=== PATIENT | male | born 1970 | race Caucasian/White ===

== ENCOUNTER 2017-04-30 16:34 | Emergency (ER) | payer OTHER ==
[~2017-04-30] VITALS: Ht 182.9 cm; Wt 79.4 kg
--- NOTE | 2017-04-30 16:45 | NUR ---
PATIENT PRESENTS TO ER C/O L RIB CAGE PAIN S/P GLF THIS AM, -KO. A/OX 4. BREATHING EVEN AND UNLABORED. NO SOB. VITALS STABLE. SAFETY AND COMFORT MEASURES IN PLACE. AWAITING MD ORDERS.
--- NOTE | 2017-04-30 17:40 | NUR ---
HUMAN RESOURCES ANALYST AT BEDSIDE.
[2017-04-30] MEDS ORDERED: HYDROCODONE/APAP 5/325MG 1 EACH TABLET ONE (17:46)
--- NOTE | 2017-04-30 17:51 | NUR ---
PATIENT REFUSED PAIN MED, STATING HE DOESNT NEED IT AT THIS TIME.
[2017-04-30] MEDS ORDERED: HYDROCODONE/APAP 5/325MG 1 EACH TABLET PO ONE (18:00)
--- NOTE | 2017-04-30 18:08 | NUR ---
Patient discharged to home in stable condition. Written and verbal after care instructions given. Patient verbalizes understanding of instruction.
[2017-04-30 18:09] VITALS: BP 125/84
== END 2017-04-30 18:09 | disposition home or self-care (01) ==
LOC: ER 16:38
DX: S22.32XA Fracture of one rib, left side, initial encounter for closed fracture (principal); W19.XXXA Unspecified fall, initial encounter; Y93.89 Activity, other specified; Y92.89 Other specified places as the place of occurrence of the external cause; Y99.8 Other external cause status
CPT/HCPCS: 71100; 99284; A4606; Z7610

== ENCOUNTER 2017-07-19 13:51 | Emergency (ER) | payer OTHER ==
[~2017-07-19] VITALS: Ht 182.9 cm; Wt 81.6 kg
[2017-07-19 14:03] VITALS: BP 148/90
--- NOTE | 2017-07-19 14:10 | NUR ---
CAME FROM DENTAL OFFICE, ADVISED TO GO HERE TO GET STEROID FOR FACIAL SWELLING. 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 NAD NOTED, VSS, RESP EVEN AND UNLABORED. WAITING FOR MD GALEANO.
[2017-07-19] MEDS ORDERED: methylPREDNISolone SOD SUCC 125 MG/2ML VIAL ONE (14:24)
[2017-07-19] MEDS ORDERED: methylPREDNISolone SOD SUCC 125 MG/2ML VIAL IV ONE (14:30)
[2017-07-23] MEDS ORDERED: IBUP-1482 PO (13:29)
== END 2017-07-19 15:38 | disposition home or self-care (01) ==
LOC: ER 13:56
DX: K04.7 Periapical abscess without sinus (principal); L03.211 Cellulitis of face; F32.9 Major depressive disorder, single episode, unspecified; F41.9 Anxiety disorder, unspecified
CPT/HCPCS: 96374; 99284; A4606; J2930; Z7610

== ENCOUNTER 2017-07-21 12:20 | Emergency (ER) | payer OTHER ==
[~2017-07-21] VITALS: Ht 182.9 cm; Wt 81.6 kg
[2017-07-21 13:03] VITALS: BP 115/70
[2017-07-23] MEDS ORDERED: IBUP-1482 PO (13:29)
== END 2017-07-21 15:26 | disposition home or self-care (01) ==
LOC: ER 12:22
DX: M27.2 Inflammatory conditions of jaws (principal); F41.9 Anxiety disorder, unspecified; F32.9 Major depressive disorder, single episode, unspecified
CPT/HCPCS: 99281; A4606; Z7610; Z7502

== ENCOUNTER 2017-07-23 06:29 | Inpatient (IN) | payer OTHER ==
[~2017-07-23] VITALS: Ht 182.9 cm; Wt 77.1 kg
--- NOTE | 2017-07-23 07:25 | NUR ---
AAOX3, C/O LEFT FACIAL SWELLING X 1 MONTH, BEEN TAKING ANTIBIOTIC TO NO RELIEF. RESP IS EVEN AND UNLABORED WITH NAD NOTED. SKIN IS WARM AND DRY. DR IBARRA AT BS FOR EVAL.
[2017-07-23] MEDS ORDERED: IV NS 0.9% 1,000 ML BAG IV ONE (07:30)
[2017-07-23 07:58] LABS: BASOPHILS % (AUTO) 0.4 % (0.0-2.0); EOSINOPHILS # (AUTO) 0.3 /CMM (0.0-0.7); EOSINOPHILS % (AUTO) 3.2 % (0.0-6.0); HEMATOCRIT 45 % (39-51); HEMOGLOBIN 15.4 g/dL (13.5-17.5); LYMPHOCYTES # (AUTO) 1.5 /CMM (0.8-4.8); LYMPHOCYTES % (AUTO) 15.8 % (20.0-44.0); MEAN CORPUSCULAR HEMOGLOBIN 31 PG (26.0-33.0); MEAN CORPUSCULAR HGB CONC 34 g/dl (31.0-36.0); MEAN CORPUSCULAR VOLUME 92 fL (80-96); MONOCYTES # (AUTO) 0.8 /CMM (0.1-1.30); NEUTROPHILS # (AUTO) 6.6 /CMM (1.8-8.9); NEUTROPHILS % (AUTO) 71.6 % (43.0-81.0); PLATELET COUNT (AUTO) 274 /CMM (150-450); RDW COEFFICIENT OF VARIATION 13.3 (11.5-15.0); RED BLOOD CELL COUNT(AUTO) 4.92 MIL/uL (4.5-6.0); WHITE BLOOD COUNT (AUTO) 9.2 K/uL (4.3-11.0)
[2017-07-23] MEDS ORDERED: HYDROCODONE/APAP 10/325MG 1 EA TABLET PO ONE (08:00)
[2017-07-23] MEDS ORDERED: HYDROCODONE/APAP 10/325MG 1 EA TABLET ONE (08:00)
[2017-07-23 08:09] LABS: CALCIUM, SERUM 8.9 mg/dL (8.5-10.1); CREATININE 1.2 mg/dL (0.6-1.3); POTASSIUM 3.8 mmol/L (3.5-5.1)
[2017-07-23 08:10] LABS: INR 0.94 (0.87-1.13); PROTHROMBIN TIME 9.8 SECS (9.5-12.7)
[2017-07-23] MEDS ORDERED: IOHEXOL-300 100 ML VIAL IV ONE (08:21)
[2017-07-23] MEDS ORDERED: IV NS 0.9% 500 ML IV ONE (08:21)
--- NOTE | 2017-07-23 08:30 | NUR ---
Patient is resting comfortably in bed with eyes closed. Easily aroused. VSS
--- NOTE | 2017-07-23 11:25 | NUR ---
Patient is resting comfortably in bed with eyes closed. Easily aroused. VSS
--- NOTE | 2017-07-23 12:25 | NUR ---
PAGED DR. RODRIGUEZ FOR ADMISSION
[2017-07-23] MEDS ORDERED: PIPERACILLIN /TAZOBACTAM 3.375 G in IV D5W 50 ML IV ONE (12:30)
--- NOTE | 2017-07-23 13:12 | NUR ---
REPORT GIVEN TO CANDACE MARCUM FOR MAYTE MS 313
[2017-07-23] MEDS ORDERED: CEPH-569 PO (13:29)
[2017-07-23] MEDS ORDERED: SULF1TAB48 PO (13:29)
[2017-07-23] MEDS ORDERED: IBUP-1957 PO (13:29)
[2017-07-23] MEDS ORDERED: HYDR-552 PO (13:29)
[2017-07-23] MEDS ORDERED: FLUO-120 PO (13:29)
[2017-07-23] MEDS ORDERED: CLON0.5T4 PO (13:29)
[2017-07-23 13:30] VITALS: BP 110/68
[2017-07-23] MEDS ORDERED: ACETAMINOPHEN 325 MG TABLET PO PRN (13:30)
[2017-07-23] MEDS ORDERED: MAGNESIUM HYDROXIDE 30 ML UDC PO PRN (13:30)
[2017-07-23] MEDS ORDERED: Z GUARD REMEDY 2 OZ OINT TP PRN (13:30)
[2017-07-23] MEDS ORDERED: ZOLPIDEM TARTRATE 5 MG TABLET PO PRN (13:30)
[2017-07-23] MEDS ORDERED: ONDANSETRON HCL/PF 4 MG/2 ML VIAL IVP PRN (13:30)
[2017-07-23] MEDS ORDERED: MAG HYDROX/AL HYDROX/SIMETH 30 ML UDC PO PRN (13:30)
--- NOTE | 2017-07-23 13:30 | NUR ---
MS/QUALITY CONTROL ASSESSOR PATIENT RECEIVED FROM ER IN STABLE CONDITION, TRANSFER VIA WHEEL CHAIR. A/O X 4. NO SIGNS OF ACUTE DISTRESS. NO COMPLAIN OF PAIN OR DISCOMFORT. REPORT GIVEN BY ERIKA NURSE FROM ER. RIGHT AC IV SITE GZ 18 INTACT AND FLUSHES WELL. SKIN CONDITION INTACT. NOTED WITH LEFT SIDE OF FACE SWELLING WITH MILD REDNESS AROUND NASAL AND CHEEK SITE. CONTINENT OF BOWEL AND BLADDER. AMBULATORY. ALL NEEDS ATTENDED TO. CALL LIGHT WITHIN REACH. WILL CONTINUE TO MONITOR TO ENSURE SAFETY.
[2017-07-23] MEDS: MORPHINE SULFATE INJ 2 MG/ML DISP.SYRIN IV PRN ×2 (15:06→19:37)
--- NOTE | 2017-07-23 15:30 | NUR ---
MS/RN SEEN BY DR AARON SEEN BY DR AARON AND MADE AWARE PATIENT COMPLAINING NASAL CONGESTION AND REQUESTING DECONGESTANT PER DR AARON ORDERED OCEAN NASAL SPRAY 1 SPRAY TO EACH NOSTRILS Q6 HRS PRN. ALSO PER DR AARON IF DR RODRIGUEZ SURGEON DOESNT SHOW UP TILL 10PM, THEN GO AHEAD AND ALLOW PATIENT TO HAVE DINNER AROUND 10PM AND NPO POST MIDNIGHT. WILL ENDORSE TO NEXT SHIFT NURSE.
[2017-07-23 16:00] VITALS: BP 115/65
[2017-07-23] MEDS ORDERED: SALINE NASAL SPRAY 0.65% 1 BOTTLE BOTTLE NS PRN (16:00)
--- NOTE | 2017-07-23 17:17 | NUR ---
MS/RN SPOKE WITH DR RODRIGUEZ (ENT) RECEIVED CALL FROM DR RODRIGUEZ AND PER DR RODRIGUEZ, HE WILL PERFORM SURGERY TOMORROW AT 9AM, WILL BE ON FLOOR TOMORROW AROUND 8AM, WILL EXPLAIN THE PROCEDURE TO PATIENT AND WILL OBTAIN CONSENT IN AM. NEW ORDER NPO POST MIDNIGHT. PATIENT MADE AWARE.
[2017-07-23] MEDS: PIPERACILLIN /TAZOBACTAM 3.375 G in IV D5W 50 ML IV SCH ×2 (17:25→23:45)
--- NOTE | 2017-07-23 18:10 | NUR ---
MS/RN CLOSING NOTE PATIENT IN BED IN STABLE CONDITION. A/O X 4. NO SIGNS OF ACUTE DISTRESS. NO COMPLAIN OF PAIN OR DISCOMFORT. ALL NEEDS ATTENDED TO. CALL LIGHT WITHIN REACH. WILL ENDORSE TO NEXT SHIFT FOR CONTINUITY OF CARE.
--- NOTE | 2017-07-23 19:30 | NUR ---
MS/RN NOTES RECEIVED PT. LYING IN BED. AWAKE, ALERT AND ORIENTED X4. BREATHING EVEN AND UNLABORED ON ROOM AIR. NO SOB, RESPIRATORY DISTRESS OR COMPLAINTS OF PAIN NOTED AT THIS TIME. PT. WITH RIGHT AC 18 GAUGE IV SALINE LOCK PRESENT, PATENT AND INTACT. PER DAYSHIFT NURSE PT. WILL BE NPO POST MIDNIGHT PENDING SURGERY FOR ABSCESS DRAINAGE TOMORROW MORNING WITH DR. RODRIGUEZ. PT. IS AWARE AND VERBALIZED UNDERSTANDING. PT. WITH FAMILY MEMBER PRESENT AT BEDSIDE. BED LOCKED AND IN LOWEST POSITION, SIDE RAILS UP X2, CALL LIGHT WITHIN REACH, WILL CONTINUE TO MONITOR.
[2017-07-23 20:10] VITALS: BP 106/68
[2017-07-23] MEDS ORDERED: PIPERACILLIN /TAZOBACTAM 4.5 G in IV D5W 50 ML IV SCH (21:00)
[2017-07-24] MEDS: PIPERACILLIN /TAZOBACTAM 3.375 G in IV D5W 50 ML IV SCH ×3 (06:00→17:53)
[2017-07-24] MEDS: MORPHINE SULFATE INJ 2 MG/ML DISP.SYRIN IV PRN ×2 (06:07→10:30)
[2017-07-24 06:28] LABS: BASOPHILS % (AUTO) 0.4 % (0.0-2.0); EOSINOPHILS # (AUTO) 0.3 /CMM (0.0-0.7); EOSINOPHILS % (AUTO) 4.1 % (0.0-6.0); HEMATOCRIT 47 % (39-51); HEMOGLOBIN 15.3 g/dL (13.5-17.5); LYMPHOCYTES # (AUTO) 1.4 /CMM (0.8-4.8); LYMPHOCYTES % (AUTO) 18.6 % (20.0-44.0); MEAN CORPUSCULAR HEMOGLOBIN 31 PG (26.0-33.0); MEAN CORPUSCULAR HGB CONC 33 g/dl (31.0-36.0); MEAN CORPUSCULAR VOLUME 94 fL (80-96); MONOCYTES # (AUTO) 0.7 /CMM (0.1-1.30); MONOCYTES % (AUTO) 8.5 % (2.0-12.0); NEUTROPHILS # (AUTO) 5.3 /CMM (1.8-8.9); NEUTROPHILS % (AUTO) 68.4 % (43.0-81.0); PLATELET COUNT (AUTO) 278 /CMM (150-450); RDW COEFFICIENT OF VARIATION 13.4 (11.5-15.0); RED BLOOD CELL COUNT(AUTO) 4.97 MIL/uL (4.5-6.0); WHITE BLOOD COUNT (AUTO) 7.8 K/uL (4.3-11.0)
--- NOTE | 2017-07-24 06:42 | NUR ---
MS/RN NOTES PT. IS LYING IN BED RESTING. BREATHING EVEN AND UNLABORED ON ROOM AIR. NO SOB, RESPIRATORY DISTRESS OR COMPLAINTS OF PAIN NOTED AT THIS TIME. PT. WITH RIGHT AC 18 GAUGE IV SALINE LOCK PRESENT, PATENT AND INTACT. PT. REMAINS NPO SINCE MIDNIGHT PENDING SURGERY FOR ABSCESS DRAINAGE THIS TOMORROW MORNING WITH DR. RODRIGUEZ. PER DAYSHIFT NURSE DR. RODRIGUEZ WILL COME AND TALK TO THE PT. THIS MORNING BEFORE GETTING CONSENT. ALL PT. NEEDS MET. ALL DUE MEDICATIONS GIVEN. BED LOCKED AND IN LOWEST POSITION, SIDE RAILS UP X2, CALL LIGHT WITHIN REACH, WILL ENDORSE TO DAYSHIFT NURSE FOR CONTINUITY OF CARE.
[2017-07-24 06:44] LABS: CALCIUM, SERUM 8.8 mg/dL (8.5-10.1); CREATININE 1.1 mg/dL (0.6-1.3); MAGNESIUM 2.3 mg/dL (1.8-2.4); PHOSPHORUS 3.8 mg/dL (2.5-4.9); POTASSIUM 4.7 mmol/L (3.5-5.1)
--- NOTE | 2017-07-24 07:20 | NUR ---
RN NOTES PT IS RESTING IN BED, NO SIGNS OF DISTRESS NOTED. PT ON RA, RESPIRATIONS ARE EVEN AND UNLABORED. IV ON RAC INTACT. SAFETY MEASURES ARE IN PLACE, CALL LIGHT IS IN REACH. WILL CONTINUE TO MONITOR.
[2017-07-24 08:00] VITALS: BP 107/69
[2017-07-24] MEDS ORDERED: LIDOCAINE 2%-EPI 1:200,000 20 ML VIAL IJ ONE (08:30)
[2017-07-24] MEDS ORDERED: BACITRACIN 50000 UNITS/VIAL ONE (08:30)
[2017-07-24] MEDS ORDERED: MIDAZOLAM HCL 2 MG/2ML VIAL ONE (08:56)
[2017-07-24] MEDS ORDERED: FENTANYL PF 100MCG/2ML AMPUL ONE ×2 (08:56→09:51)
[2017-07-24] MEDS ORDERED: CHLORHEXIDINE GLUCONATE 15 ML UDC MM ONE (09:00)
[2017-07-24] MEDS ORDERED: LIDOCAINE 1%-EPI 1:100,000 20 ML VIAL TP ONE (09:00)
[2017-07-24] MEDS ORDERED: KETAMINE HCL (500MG/10ML) 50 MG/ML VIAL ONE (09:01)
[2017-07-24] MEDS: HYDROCODONE/APAP 5/325MG 1 EACH TABLET PO PRN (11:06)
[2017-07-24] MEDS ORDERED: MORPHINE SULFATE INJ 2 MG/ML DISP.SYRIN IV PRN ×2 (12:30→13:30)
[2017-07-24] MEDS ORDERED: KETOROLAC TROMETHAMINE INJ 30 MG/ML VIAL IM ONE (12:30)
[2017-07-24] MEDS: CHLORHEXIDINE GLUCONATE 15 ML UDC MM SCH ×2 (12:37→17:53)
[2017-07-24] MEDS: HYDROCODONE/APAP 10/325MG 1 EA TABLET PO SCH ×2 (12:38→17:53)
[2017-07-24 16:00] VITALS: BP 125/73
--- NOTE | 2017-07-24 18:55 | NUR ---
RN NOTES PT IS SITTING UP IN BED, NO SIGNS OF DISTRESS NOTED, PT DENIES ANY PAIN. PT ON RA, RESPIRATIONS ARE EVEN AND UNLABORED. IV ON RAC INTACT AND PATENT. ALL MEDS WERE GIVEN ORDERED AND PT NEEDS MET. SAFETY MEASURES ARE IN PLACE, CALL LIGHT IS IN REACH. WILL ENDORSE TO CARTOON ARTIST RN FOR CONTINUITY OF CARE.
--- NOTE | 2017-07-24 19:30 | NUR ---
RN NOTE; RECEIVED PT IN BED AWAKE AND ALERT, BREATHING EVENLY. NO SOB. NAD. SKIN WARM AND DRY. NO C/O PAIN OR DISCOMFORT AT THIS TIME. STILL W/ FACIAL SWELLING. W/ MINIMAL BLOOD LEAKAGE FROM THE SX SITE INSIDE THE MOUTH.. NEEDS ATTENDED. BED LOW LOCKED. CALL LIGHT WITHIN REACH. WILL CONT TO MONITOR .
[2017-07-24 20:00] VITALS: BP 119/70
[2017-07-25] MEDS: HYDROCODONE/APAP 10/325MG 1 EA TABLET PO SCH ×4 (00:02→12:14)
[2017-07-25] MEDS: PIPERACILLIN /TAZOBACTAM 3.375 G in IV D5W 50 ML IV SCH ×3 (00:05→12:05)
--- NOTE | 2017-07-25 06:18 | NUR ---
RN NOTE; PT IN BED SLEEPING, AROUSES EASILY. BREATHING EVENLY. NO SOB. NAD. W/ L FACIAL SWELLING. NO BLEEDING FROM THE INCISION SITE. PAIN UNDER CONTROL W/ ROUND THE CLOCK NORCO. NEEDS ATTENDED. ASSISTED W/ ADLs. CALL LIGHT WITHIN REACH. WILL CONT TO MONITOR AND WILL ENDORSE TO AM SHIFT FOR MAYTE.
[2017-07-25 07:14] LABS: BASOPHILS % (AUTO) 0.4 % (0.0-2.0); EOSINOPHILS # (AUTO) 0.4 /CMM (0.0-0.7); EOSINOPHILS % (AUTO) 5.3 % (0.0-6.0); HEMATOCRIT 43 % (39-51); HEMOGLOBIN 14.4 g/dL (13.5-17.5); LYMPHOCYTES # (AUTO) 1.5 /CMM (0.8-4.8); LYMPHOCYTES % (AUTO) 17.9 % (20.0-44.0); MEAN CORPUSCULAR HEMOGLOBIN 31 PG (26.0-33.0); MEAN CORPUSCULAR HGB CONC 34 g/dl (31.0-36.0); MEAN CORPUSCULAR VOLUME 93 fL (80-96); MONOCYTES # (AUTO) 0.8 /CMM (0.1-1.30); MONOCYTES % (AUTO) 9.7 % (2.0-12.0); NEUTROPHILS # (AUTO) 5.5 /CMM (1.8-8.9); NEUTROPHILS % (AUTO) 66.7 % (43.0-81.0); PLATELET COUNT (AUTO) 248 /CMM (150-450); RDW COEFFICIENT OF VARIATION 13.7 (11.5-15.0); WHITE BLOOD COUNT (AUTO) 8.3 K/uL (4.3-11.0)
[2017-07-25 07:35] LABS: CALCIUM, SERUM 8.9 mg/dL (8.5-10.1); MAGNESIUM 2.2 mg/dL (1.8-2.4); POTASSIUM 4.1 mmol/L (3.5-5.1)
--- NOTE | 2017-07-25 07:37 | NUR ---
RN OPENING NOTES. RECEIVED PT A&0X3, AWAKE AND RESTING IN BED. PT TOLERATING ROOM AIR WITH NO SOB. PT REPORTING ACCEPTABLE 3/10 PAIN. PT WITH IVC AT R AC G#18 INTACT AND OPERATIONAL. IV'S REVIEWED AND CORRECT. BED IN LOWEST LOCKED POSITION WITH HANDRAILSX2 AND CALL DICKENS WITHIN REACH. PT BRIEFED ON TODAY'S POC. PT IS WITHOUT CONCERN OR COMPLAINT AT THIS TIME.
[2017-07-25 08:00] VITALS: BP 108/65
[2017-07-25] MEDS: CHLORHEXIDINE GLUCONATE 15 ML UDC MM SCH (10:53)
[2017-07-25] MEDS: HYDROCODONE/APAP 5/325MG 1 EACH TABLET PO PRN (12:19)
--- NOTE | 2017-07-25 12:21 | NUR ---
RN NOTES. PT REFUSING NORCO 10, REQUESTING NORCO 5. ADMINISTERED WITH GOOD EFFECT.
--- NOTE | 2017-07-25 14:35 | NUR ---
RN CLOSING NOTES. PT A&0X3 AND TOLERATING ROOM AIR WITH NO SOB. PT REPORTING ADEQUATE PAIN MANAGEMENT AT THIS TIME WITH PAIN GENERALIZED FACIAL PAIN 2-3/10. PT WITHOUT IVC AND NAD AT SITE. ALL PT BELONGINGS ACCOUNTED FOR AND DOCUMENT SIGNED. PT BRIEFED ON SOH D/C PACKET AND GIVEN SCRIPTS AND APPROPRIATE NUMBERS FOR FOLLOW. PT VERBALIZING UNDERSTANDING AND INTENT TO COMPLY. PT WITHOUT CONCERN OF COMPLAINT AT THIS TIME. PT AMBULATORY EXIT.
== END 2017-07-25 15:30 | disposition home or self-care (01) | DRG 158 ==
LOC: ER 06:32 → MED 12:56
PROVIDERS: ADMIT Internal Medicine; ATTEND Internal Medicine
PROC: 0C9 Mouth and Throat, Drainage (ICD-10-PCS; principal; 2017-07-24 09:00)
DX: K04.7 Periapical abscess without sinus (principal); L03.211 Cellulitis of face; J34.2 Deviated nasal septum; Z79.899 Other long term (current) drug therapy; Z98.890 Other specified postprocedural states; K21.9 Gastro-esophageal reflux disease without esophagitis
CPT/HCPCS: 36415; 70487-TC; 80048-TC; 80061-TC; 83605-TC; 83735-TC; 84100-TC; 85025-TC; 85730-TC; 86850-TC; 87040-TC; 87070-TC; 87075-TC; 87081-TC; A4606; A6402; J1885; J2250; J2270; J2543; J2704; J3010; J3490; J7040; J7060; Q9967; Z7610